=== PATIENT | female | born 1960 | race Caucasian/White ===

== ENCOUNTER 2021-12-09 02:58 | Emergency (ER) | payer SELFPAY ==
[2021-12-09] MEDS ORDERED: Sodium Chloride 0.9% 100 ML IV SCH (04:00)
[2021-12-09] MEDS ORDERED: Sodium Chloride 0.9% 10 ML Syringe FLUSH ONE (04:00)
[2021-12-09] MEDS ORDERED: Iopamidol 755 Mg/ML 100 ML Bottle IVPUSH ONE (04:00)
== END 2021-12-09 05:25 ==
LOC: JD.ED 02:58
DX: I63.9 Cerebral infarction, unspecified (principal); Z88.6 Allergy status to analgesic agent; Z20.822 Contact with and (suspected) exposure to COVID-19
CPT/HCPCS: 36415; 70450; 70496; 70498; 80053; 82947; 84484; 85025; 85610; 85730; 87635; 93005; 99285; J3490; Q9967; 93010; U0002